=== PATIENT | female | born 1980 | race Two or more races ===

== ENCOUNTER 2019-06-30 13:25 | Emergency (ER) | payer MEDICAID ==
[~2019-06-30] VITALS: Ht 175.3 cm; Wt 59.0 kg
[2019-06-30 14:45] LABS: CLARITY URINE CLEAR (CLEAR); COLOR URINE YELLOW (YELLOW); KETONES URINE NEGATIVE (NEGATIVE); LEUKOCYTE ESTERASE URINE NEGATIVE (NEGATIVE); NITRITE URINE NEGATIVE (NEGATIVE); OCCULT BLOOD URINE NEGATIVE (NEGATIVE); PROTEIN URINE NEGATIVE (NEGATIVE); UROBILINOGEN URINE 0.2 E.U./dL (0.2-1.0)
[2019-06-30 16:55] LABS: BASOPHILS % 0.8 % (0.0-2.0); EOSINOPHILS % 0.8 % (0.0-5.0); HEMATOCRIT. 32.1 % (36.0-48.0); HEMOGLOBIN. 10.9 g/dL (12.0-16.0); LYMPHOCYTES % 19.4 % (20.0-50.0); MEAN CORPUSCULAR HEMOGLOBIN 28.4 pg (28.0-32.0); MEAN CORPUSCULAR VOLUME 83.9 fL (81.0-99.0); MEAN PLATELET VOLUME 7.8 fl (7.4-10.4); MONOCYTES % 5.7 % (2.0-8.0); NEUTROPHILS % 73.3 % (40.0-76.0); PLATELET 262 x1000/uL (130-400); RED BLOOD CELL COUNT 3.83 mill/uL (4.2-5.4); RED CELL DISTRIBUTION WIDTH 18.5 % (11.6-14.6)
[2019-06-30 17:01] LABS: CHLORIDE 107 mEq/L (98-107)
[2019-06-30 17:25] LABS: B-HCG QUANTITATIVE 91702 mIU/mL (<3)
[2019-06-30 18:55] VITALS: BP 107/68
== END 2019-06-30 18:57 | disposition home or self-care (01) ==
LOC: ER 13:25
DX: O46.91 Antepartum hemorrhage, unspecified, first trimester (principal); O99.321 Drug use complicating pregnancy, first trimester; Z88.0 Allergy status to penicillin; Z3A.01 Less than 8 weeks gestation of pregnancy
CPT/HCPCS: 36415; 76801; 80048; 81003; 81025; 84702; 85025; 86850; 86900; 87210; 87591; 99284